=== PATIENT | female | born 1980 | race Two or more races ===

== ENCOUNTER 2023-01-25 21:51 | Emergency (ER) | payer OTHER ==
[2023-01-25 22:03] VITALS: BMI 27.7
[2023-01-25] MEDS ORDERED: ALPRAZolam 0.25 MG TABLET PO ONE (23:31)
[2023-01-25] MEDS ORDERED: ACETAMINOPHEN 325 MG TABLET (FP) PO ONE (23:31)
[2023-01-25] MEDS ORDERED: ALPRAZolam 0.25 MG TABLET ONE (23:40)
[2023-01-25] MEDS ORDERED: ACETAMINOPHEN 325 MG TABLET (FP) ONE (23:40)
[2023-01-26 00:18] LABS: OPIATES, URI NEGATIVE (NEGATIVE); URINE BARBITURATES NEGATIVE (NEGATIVE)
[2023-01-26 00:19] LABS: COCAINE, UR NEGATIVE (NEGATIVE); METHADONE, UR NEGATIVE (NEGATIVE); URINE BENZODIAZEPINES NEGATIVE (NEGATIVE)
[2023-01-26 00:31] LABS: PHENCYCLIDINE,URINE NEGATIVE (NEGATIVE); URINE AMPHETAMINES NEGATIVE (NEGATIVE)
[2023-01-26 00:35] LABS: BASO % 0.4 % (0-2.0); EOS % 0.4 % (0-4.5); HEMOGLOBIN 15.5 GM/dL (10.7-15.3); LYMPH % 22.6 % (8-40); MCH 30.8 pg (25.7-33.7); MCHC 33.7 g/dl (32.0-36.0); MEAN CELL VOLUME 91.4 fl (80-96); MEAN PLT VOLUME 8.2 fl (7.5-11.1); NEUT % 70.6 % (42.8-82.8); PLATELET COUNT 350 10^3/uL (134-434); RBC 5.04 M/mm3 (3.60-5.2); RDW 13.8 % (11.6-15.6); WHITE BLOOD COUNT 7.9 K/mm3 (4.0-10.0)
[2023-01-26 00:57] LABS: CHLORIDE 103 mmol/L (98-107); POTASSIUM 3.8 mmol/L (3.5-5.1); SODIUM 138 mmol/L (136-145)
[2023-01-26 00:59] LABS: CALCIUM 8.9 mg/dL (8.5-10.1)
[2023-01-26 01:00] LABS: ALBUMIN 4.5 g/dl (3.4-5.0); ANION GAP 8 mmol/L (4-13); BLOOD UREA NITROGEN 6.8 mg/dL (7-18); CO2 28 mmol/L (21-32); GLUCOSE,RANDOM 120 mg/dL (74-106)
[2023-01-26 01:03] LABS: CREATININE 0.6 mg/dL (0.55-1.3); SGOT/AST 23 U/L (15-37); SGPT/ALT 32 U/L (13-61)
[2023-01-26 01:04] LABS: BILIRUBIN,TOTAL 0.6 mg/dL (0.2-1); TOT PROT 8.2 g/dl (6.4-8.2)
[2023-01-26 01:06] LABS: ALK PHOS 102 U/L (45-117)
[2023-01-26 09:37] VITALS: BP 119/72; PULSE 65; RESP 16; TEMP 97.8
== END 2023-01-26 09:49 | disposition home or self-care (01) ==
LOC: JER 21:51
DX: F32.A Depression, unspecified (principal); R45.851 Suicidal ideations; Z60.9 Problem related to social environment, unspecified; F41.9 Anxiety disorder, unspecified; R51.9 Headache, unspecified; R06.02 Shortness of breath
CPT/HCPCS: 36415; 80053; 80307; 84703; 85025; 93005; 93010; 99284-25